=== PATIENT | male | born 1960 | race Caucasian/White ===

== ENCOUNTER 2017-10-01 15:59 | Emergency (ER) | payer MEDICAID ==
[~2017-10-01] VITALS: Ht 172.7 cm; Wt 80.5 kg
[~2017-10-01 15:59] MED LIST: COL100 PO; NOR10T PO
[2017-10-01 16:15] VITALS: Ht 172.7 cm; Wt 80.5 kg
[2017-10-01 20:06] VITALS: BP 144/89
== END 2017-10-01 20:06 | disposition home or self-care (01) ==
LOC: ED 15:59
DX: R10.30 Lower abdominal pain, unspecified (principal); F17.210 Nicotine dependence, cigarettes, uncomplicated; Z98.890 Other specified postprocedural states
CPT/HCPCS: Q0162